=== PATIENT | male | born 2000 | race Caucasian/White ===

== ENCOUNTER 2020-01-04 13:19 | Emergency (ER) | payer OTHER, SELFPAY ==
--- NOTE | ~2020-01-04 | XR_ITS ---
EXAMINATION: XR hand RT min 3V DATE: 01/04/2020 13:34 INDICATION: Right hand injury and pain. TECHNIQUE: 3 views of right hand were obtained. COMPARISON: None. FINDINGS: Bone alignment is normal. There is a nondisplaced stellate fracture of neck of second metac arpal. Joint spaces are normal. IMPRESSION: 1. Nondisplaced stellate fracture of neck of second metacarpal. Reviewed, dictated and finalized at location A.
[2020-01-04 13:35] VITALS: BP 129/71; PULSE 101; RESP 20; TEMP 37.4; O2SAT 100
--- NOTE | 2020-01-04 13:43 | ED.GENADULT ---
HPI - General Adult General Chief complaint: Extremity Injury, Upper Stated complaint: right hand injury Source: patient Mode of arrival: ambulatory Limitations: no limitations History of Present Illness HPI narrative: 19 y/o male. Presents to [facility] clinic today with acute complaints of RT dorsal hand pain after accidentally hitting it with a hammer. Client reports to have been working with his father on a vehicle, his father was using hammer when the handle broke and the hammer hit him in the right hand . Incident had initially occurred 24 hours ago. Patient reports increased pain, swelling, and bruising to area since that time. He has not yet taken any home remedies for pain. No open wound or additional injury relayed at this time. Related Data Allergies Allergy/AdvReac Type Severity Reaction Status Date / Time No Known Allergies Allergy Verified 12/08/19 15:09 Review of Systems Review of Systems: Narrative: CONSTITUTIONAL: Denies fever, chills, sweats. EYES: Denies visual changes, redness, discharge. ENT: Denies rhinorrhea, congestion, sore throat, otalgia. CARDIOVASCULAR: Denies chest pain, palpitations, edema. RESPIRATORY: Denies dyspnea, wheezing, cough GASTROINTESTINAL: Denies abdominal pain, nausea, vomiting, diarrhea. GENITOURINARY: Denies dysuria, hematuria, abnormal discharge SKIN: Denies rash or itching. MUSCULOSKELETAL: Positive RT hand pain. Denies acute back pain, or myalgia. NEUROLOGIC: Denies numbness, or focal weakness. PSYCHIATRIC: Denies anxiety or depression. Constitutional: Constitutional: Reports as per [facility] Social History Social History Smoking status: Never smoker Alcohol intake: never Exam Narrative: Exam Narrative: GENERAL: This is a well-nourished, well-developed patient, in no apparent distress. HEAD: normocephalic, atraumatic. EYES: PERRL. Sclera clear/white. Vision is grossly intact. EARS: External ears normal, auditory canals clear and without drainage, TMs normal without perforation. Hearing grossly intact. NOSE: External nose normal with no obvious nasal discharge, nares without redness, no rhinorrhea. THROAT: Mucous membranes moist, posterior pharynx clear. NECK: Neck supple, non-tender without lymphadenopathy, masses or thyromegaly. CARDIOVASCULAR: Regular rate and rhythm without murmurs, gallops, or rubs. RT radial pulses well. RESPIRATORY: Clear to auscultation. Breath sounds equal bilaterally. No wheezes, rales, or rhonchi. GASTROINTESTINAL: Abdomen soft, non-tender, nondistended. Bowel sounds are active. No hepato-splenomegaly, or palpable masses. No guarding. SKIN: warm, intact with no suspicious lesions or rash, good texture and turgor. NEURO: awake, alert, and oriented to person, place and time. There were no obvious focal neurologic abnormalities. Steady gait. Sensation is preserved RT upper extremity. EXTREMITIES: Soft tissue swelling and moderate ecchymosis located to dorsal RT hand, ROM is preserved. No open areas or open integumentary insult. No obvious bony deformity. BACK: Nontender without deformity or crepitance. No flank tenderness. Const: General: no acute distress Orientation/consciousness: patient oriented x3 Course Course Emergency Course: -Xray RT hand: nondisplaced stellate fracture of neck of second metacarpal-See Reports. -Hand OCL application has been achieved. Pre and post neurovascular status evaluation is well. Pulses and sensation remain intact. No neurovascular deficits. Physical exam findings, diagnosis, and clinical recommendations reviewed with client. Discharge instructions, medication instructions reviewed with patient. Patient had been given instructions in writing with specific return and follow-up criteria. All questions have been answered, and the patient and/or family deny any further questions with discharge and discharge plan. Patient discharged in stable cond
== END 2020-01-04 14:25 | disposition home or self-care (01) ==
PROVIDERS: Emergency Provider Nurse Practitioner Adult Health; PCP Family Medicine
DX: S62.360A Nondisplaced fracture of neck of second metacarpal bone, right hand, initial encounter for closed fracture (principal); W27.8XXA Contact with other nonpowered hand tool, initial encounter
CPT/HCPCS: 29125; 73130; 99214; G0463